=== PATIENT | female | born 1965 | race Caucasian/White ===

== ENCOUNTER → 2016-11-26 | Outpatient (CLI) | payer OTHER ==
[~2016-11-26] MED LIST: AMBIEN 10 MG TA10 MG PO; AMBIEN 5 MG TABL5 M1 PO; ASCRIPTIN 325325 MG PO; ASPIR 8181 MG PO; ASPIRIN325 PO; CEFDINIR300 MG PO; DULCOLAX5 MG PO; ESTRACE1 MG PO; ETODOLAC 400 M400 MG PO; EVENING PRIMRO500 MG PO; FISH OIL 1,001000 M1 PO; FISHOIL; FOSAMAX 70 MG T70 M1 PO; FOSAMAX 70 MG T70 MG PO; HAIR SKIN NAIL1 EACH PO; HAIR, SKIN & N1 EAC1 PO; LEVOTHYROXINE 0.1 MG PO; NASACORT10.8 ML NASAL; NORCO 5-325 TA1 EACH PO; OMEPRAZOLE20 M2 PO; PHENERGAN 25 MG25 M1 PO; PREMARIN0.9 M1 PO; SALONPAS PATCH1 EAC1 TRANSDERM; SYNTHROID112 MCG PO; TRAMADOL 50 MG50 MG PO; VITAMIN D1000 UNI1 PO; ZOFRAN ODT4 MG PO
== END ==
LOC: CAT 16:07
DX: J32.9 Chronic sinusitis, unspecified (principal); R51 Headache

== ENCOUNTER 2016-12-28 08:48 | Emergency (ER) | payer OTHER ==
[~2016-12-28] VITALS: Ht 162.6 cm; Wt 65.3 kg
[2016-12-28] MEDS ORDERED: PENNSAID2 GM TP (08:53)
[2016-12-28 09:10] LABS: BASOPHILS 0.9 % (0.0-2.0); EOSINOPHILS 1.6 % (0.0-3.0); HEMOGLOBIN 13.9 gm/dL (12.0-15.0); LYMPHOCYTES 31.9 % (24.0-44.0); MCH 30.3 pg (26.0-34.0); MCV 89.1 fL (80.0-100.0); PLATELET COUNT 290 thou/uL (150-400); POLYS 56.6 % (36.0-66.0); RDW 13.7 % (10.5-14.5); WBC 7.1 thou/uL (4.0-11.0)
[2016-12-28 09:11] LABS: MANUAL DIFF NO
[2016-12-28 09:20] LABS: ANION GAP 6 mmol/L (7-16); BUN 8 mg/dL (7-18); CHLORIDE 106 mmol/L (98-107); CO2 29 mmol/L (21-32); CREATININE 0.8 mg/dL (0.6-1.0); GLUCOSE 94 mg/dL (74-106); POTASSIUM 3.9 mmol/L (3.5-5.1); SODIUM 141 mmol/L (136-145)
[2016-12-28 09:25] LABS: ALBUMIN 3.5 g/dL (3.4-5.0); ALKALINE PHOSPHATASE 75 U/L (46-116); DIRECT BILIRUBIN < 0.1 mg/dL (<0.1-0.3); SGOT 19 U/L (15-37); SGPT 16 U/L (30-65); TOTAL BILIRUBIN 0.2 mg/dL (<0.1-1.0); TOTAL PROTEIN 7.3 g/dL (6.4-8.2)
[2016-12-28 09:27] LABS: URINE BLOOD TRACE (Negative); URINE COLOR YELLOW; URINE GLUCOSE-RANDOM* NEGATIVE (Negative); URINE KETONES TRACE (Negative); URINE NITRITE NEGATIVE (Negative); URINE PROTEIN (DIPSTICK) NEGATIVE (Negative); URINE SPECIFIC GRAVITY 1.015 (1.003-1.035); URINE UROBILINOGEN 0.2 E.U./dl (0.2-1.0)
[2016-12-28 09:29] LABS: ICTOTEST (BILI CONFIRMATORY) Negative (Negative); URINE BILIRUBIN NEGATIVE (Negative)
[2016-12-28] MEDS ORDERED: NORCO 5-325 TA1 EACH PO (10:35)
[2016-12-28] MEDS ORDERED: ONDANSETRON HCL4 M2 PO (10:35)
== END 2016-12-28 10:52 | disposition home or self-care (01) ==
LOC: ER 08:48
PROVIDERS: Emergency Medicine
DX: R10.13 Epigastric pain (principal); R11.2 Nausea with vomiting, unspecified; E03.9 Hypothyroidism, unspecified; K21.9 Gastro-esophageal reflux disease without esophagitis; F10.99 Alcohol use, unspecified with unspecified alcohol-induced disorder; Z90.710 Acquired absence of both cervix and uterus; Z98.890 Other specified postprocedural states; Z88.0 Allergy status to penicillin; Z91.048 Other nonmedicinal substance allergy status; Z88.8 Allergy status to other drugs, medicaments and biological substances

== ENCOUNTER → 2017-03-08 | Outpatient (CLI) | payer OTHER ==
[~2017-03-08] MED LIST changes: +ONDANSETRON HCL4 M2 PO; +PENNSAID2 GM TP
== END ==
LOC: RAD 01:08
DX: Z12.31 Encounter for screening mammogram for malignant neoplasm of breast (principal)

== ENCOUNTER → 2017-09-16 | Outpatient (CLI) | payer OTHER | LOC: MRI 08-23 11:10 | DX: M47.897 Other spondylosis, lumbosacral region (principal); S84.12XA Injury of peroneal nerve at lower leg level, left leg, initial encounter; X58.XXXA Exposure to other specified factors, initial encounter; Y93.89 Activity, other specified; Y92.89 Other specified places as the place of occurrence of the external cause; Y99.8 Other external cause status; Z88.1 Allergy status to other antibiotic agents; Z88.0 Allergy status to penicillin; Z88.8 Allergy status to other drugs, medicaments and biological substances ==

== ENCOUNTER → 2018-03-16 | Outpatient (CLI) | payer OTHER | LOC: RAD 00:39 | DX: Z12.31 Encounter for screening mammogram for malignant neoplasm of breast (principal) ==

== ENCOUNTER → 2018-05-02 | Outpatient (CLI) | payer OTHER | LOC: ULTRA 09:18 | DX: R31.9 Hematuria, unspecified (principal); R10.84 Generalized abdominal pain; M54.5 Low back pain; Z90.710 Acquired absence of both cervix and uterus; Z90.49 Acquired absence of other specified parts of digestive tract ==

== ENCOUNTER → 2018-10-20 | Outpatient (CLI) | payer BC, OTHER | LOC: NUC 09:39 | DX: M81.0 Age-related osteoporosis without current pathological fracture (principal); M85.89 Other specified disorders of bone density and structure, multiple sites; Z90.5 Acquired absence of kidney ==

== ENCOUNTER 2019-05-25 12:21 | Day surgery (SDC) | payer BC, OTHER ==
[~2019-05-25] VITALS: Ht 162.6 cm; Wt 59.9 kg
--- NOTE | ~2019-05-25 | O ---
[facility] [place] [address] OPERATIVE REPORT Name: VIVI LEE Room #: 150-9 [facility] M.R.#: [id number] Admission: 05/25/19 Attend Phys: Jose Dye MD Discharge: Date of : 63 Report #: [id number] THIS REPORT FOR: //name// CC: Vira Neil Jose Dye DATE OF SERVICE: 05/25/2019 PREOPERATIVE DIAGNOSIS: Right knee medial meniscus tear. POSTOPERATIVE DIAGNOSES: 1. Root tear posterior horn medial meniscus tear, right knee. 2. Grade 4 chondromalacia of the medial femoral condyle. PROCEDURE: 1. Right knee arthroscopy with partial medial meniscectomy. 2. Chondroplasty, medial femoral condyle. SURGEON: Jose Dye MD. [employer] REELING MACHINE OPERATOR: Caitlin Duque PA-C. ANESTHESIA: LMA. TOURNIQUET TIME: Approximately 12 minutes. COMPLICATIONS: None. SPECIMENS: None. CONDITION UPON LEAVING THE OPERATING ROOM: Stable. INDICATIONS FOR PROCEDURE: The patient is a 53-year-old female with medial-sided right knee pain. She had an MRI scan showing to have a tear of the posterior horn of the medial meniscus and after discussion with her, she elected for right knee arthroscopy with partial medial meniscectomy and debridement as needed. DESCRIPTION OF PROCEDURE: Risks, benefits, alternatives, complications were discussed in detail with the patient including but not limited to risk of anesthesia, risk of damage to nerves, arteries, blood vessels, risk for infection, bleeding, risk for continued knee pain and need for reoperation. Informed consent was obtained from the patient. The right knee was appropriately marked in the preoperative holding area. IV Ancef was given for preoperative antibiotics. She was brought to the operating room and placed in supine position on operating room table. LMA anesthesia was induced without [facility] [address] [place] [address] OPERATIVE REPORT Name: VIVI LEE Room #: 150-9 [facility]..#: [id number] Admission: 05/25/19 Attend Phys: Jose Dye MD Discharge: Date of : 63 Report #: [id number] complication. Tourniquet was placed on the right thigh. Right lower extremity was prepped and draped in normal sterile fashion. Timeout was performed properly identifying the patient and procedure as well as the instrumentation and implants. All in the operating room were in agreement. Right lower extremity was exsanguinated, tourniquet was inflated. Tourniquet time was 12 minutes. Standard anterolateral portal was established with 11 blade through the skin. Arthroscope was introduced into the patellofemoral compartment, diagnostic arthroscopy was undertaken. Patellofemoral compartment was visualized and found to be without pathology. Medial gutter was visualized and found to be without pathology. Medial compartment was visualized and medial portal was established under arthroscopic visualization. Probe was introduced into the medial compartment. There was noted to be a small tear of the root insertion of the posterior horn of medial meniscus. This was trimmed back with arthroscopic biter and smoothed back with a shaver. In addition, the medial femoral condyle demonstrated areas of grade 3 chondromalacia as well as grade 4 chondromalacia with large unstable cartilaginous flap on the weightbearing surface of the medial femoral condyle. This was smoothed back with oscillating shaver. Notch was visualized and found to have an intact anterior cruciate ligament. Lateral compartment was visualized and found to have an intact lateral meniscus as well as articular cartilage. After this, all fluid was allowed to drain from the knee. The knee was injected with 10 mL of 0.5% Marcaine. Incision was closed with 3-0 nylon. Soft dressing of Adaptic, 4 x 4, Webril, Isac wrap were applied. The patient tolerated this procedure well and went to recovery room under care of anesthesia postoperatively. By: [id number] Jose Dye MD /nt
[~2019-05-25 12:21] MED LIST changes: +BIOTIN1 MG PO; +DULOXETINE HCL30 MG PO; -LEVOTHYROXINE 0.1 MG PO; +MAGNESIUM OXID500 M1 PO; +SENNA PLUS TAB1 EACH PO; +SYNTHROID100 MC1 PO
[2019-05-25 13:08] VITALS: BP 135/67
[2019-05-25] MEDS ORDERED: NORCO 5-325 TA1 EAC1 PO (14:38)
[2019-05-25 15:09] VITALS: BP 135/67
== END 2019-05-25 15:35 | disposition home or self-care (01) ==
LOC: OR 12:21 → TBA 12:24 → OR 12:36
DX: M23.221 Derangement of posterior horn of medial meniscus due to old tear or injury, right knee (principal); M94.261 Chondromalacia, right knee; M17.0 Bilateral primary osteoarthritis of knee; E03.9 Hypothyroidism, unspecified; M81.0 Age-related osteoporosis without current pathological fracture; Z98.890 Other specified postprocedural states; Z79.899 Other long term (current) drug therapy; Z90.49 Acquired absence of other specified parts of digestive tract; Z90.710 Acquired absence of both cervix and uterus; Z88.0 Allergy status to penicillin; Z88.8 Allergy status to other drugs, medicaments and biological substances; Z82.49 Family history of ischemic heart disease and other diseases of the circulatory system
CPT/HCPCS: 50010; 50101; 57103; 62110; 62900; 70005

== ENCOUNTER → 2019-05-29 | Outpatient (CLI) | payer BC, OTHER ==
[~2019-05-29] MED LIST changes: +NORCO 5-325 TA1 EAC1 PO
== END ==
LOC: RAD 03-17 01:49 → BC 12:04 → RAD 19:58 → BC 20:12
DX: Z12.31 Encounter for screening mammogram for malignant neoplasm of breast (principal)

== ENCOUNTER → 2020-05-29 | Outpatient (CLI) | payer BC, OTHER | LOC: BC 10:02 | PROVIDERS: ATTEND Obstetrics & Gynecology | DX: Z12.31 Encounter for screening mammogram for malignant neoplasm of breast (principal) ==

== ENCOUNTER → 2021-05-29 | Outpatient (CLI) | payer BC, OTHER | LOC: BC 09:25 | PROVIDERS: ATTEND Obstetrics & Gynecology | DX: Z12.31 Encounter for screening mammogram for malignant neoplasm of breast (principal); N64.89 Other specified disorders of breast ==